=== PATIENT | female | born 1985 | race Two or more races ===

== ENCOUNTER 2018-03-20 02:03 | Emergency (ER) | payer MEDICAID ==
--- NOTE | 2018-03-20 02:07 | EDPHY ---
H & P Time Seen by Provider: 03/20/18 02:07 HPI/ROS: HPI CHIEF COMPLAINT: [ ] HISTORY OF PRESENT ILLNESS: [Need 4: Location, Duration, Severity, Quality, Context, Timing Modifying Factors, Associated S&S] Past Medical History: Past Surgical History: Social History: Family History: ROS REVIEW OF SYSTEMS: 10 Systems were reviewed and negative with the exception of the elements mentioned in the history of present illness. Exam Constitutional triage nursing summary reviewed, vital signs reviewed, awake/ alert. Eyes normal conjunctivae and sclera, EOMI, PERRLA. HENT normal inspection, atraumatic, moist mucus membranes, no epistaxis, neck supple/ no meningismus, no raccoon eyes. Respiratory clear to auscultation bilaterally, normal breath sounds, no respiratory distress, no wheezing. Cardiovascular rate normal, regular rhythm, no murmur, no edema, distal pulses normal. Gastrointestinal soft, non-tender, no rebound, no guarding, normal bowel sounds, no distension, no pulsatile mass. Genitourinary no CVA tenderness. Musculoskeletal no midline vertebral tenderness, full range of motion, no calf swelling, no tenderness of extremities, no meningismus, good pulses, neurovascularly intact. Skin pink, warm, & dry, no rash, skin atraumatic. Neurologic awake, alert and oriented x 3, AAOx3, moves all 4 extremities equally, motor intact, sensory intact, CN II-XII intact, normal cerebellar, normal vision, normal speech. Psychiatric normal mood/affect. Heme/Lymph/Immune no lymphadenopathy. Differential Diagnosis: Medical Decision Making: Re-evaluation: Source: Patient, EMS - Medical/Surgical History Hx Asthma: Yes Hx Chronic Respiratory Disease: No Hx Diabetes: No Hx Cardiac Disease: No Hx Renal Disease: No Hx Cirrhosis: No Hx Alcoholism: No Hx HIV/AIDS: No Hx Splenectomy or Spleen Trauma: No Other PMH: BIPOLAR, tighning of esophagus, chronic sinutitis. RML Lobectomy, fundoplication; hx of PTSD, ADHD, and alcohol use disorder. - Social History Smoking Status: Never smoked Allergies/Adverse Reactions: oxcarbazepine [From Trileptal] Allergy (Verified 03/20/18 02:04) Home Medications: Medication Instructions Recorded Adderall 10 mg Tablet 10/23/15 Ativan 10/23/15 Flonase Nasal [place] 10/23/15 GABAPENTIN 10/23/15 Lexapro 10/23/15 [place] Nasal [place] 10/23/15 Ventolin Hfa Inhaler 10/23/15 Wellbutrin Sr 10/23/15 Departure - Departure Referrals: NONE *PRIMARY CARE P,. [Primary Care Provider] - As per Instructions
[2018-03-20 02:08] VITALS: BP 108/82
--- NOTE | 2018-03-20 02:10 | EDPHY ---
H & P Stated Complaint: med clear Time Seen by Provider: 03/20/18 02:07 HPI/ROS: Chief complaint: Medical clearance for alf History of present illness: This is a 32-year-old female brought to the emergency department by EMS, accompanied by police for medical clearance to go to alf. Officers made contact with patient at a bar. She appeared to be overly intoxicated. Offices were going to take her to detox. Upon placing her in the police car she became belligerent, attempted to kick out the windows. She had to be forcibly removed from the car and restrained. There was no report of traumatic injury to her during this time including to the head. They present here for medical evaluation for taking her to alf. On my evaluation of patient she states she feels fine. She will not answer further questions. Review of systems: Unable to obtain secondary to level of intoxication - Personal History LMP (Females 10-55): Unknown Current Tetanus Diphtheria and Acellular Pertussis (TDAP): Unsure - Medical/Surgical History Hx Asthma: Yes Hx Chronic Respiratory Disease: No Hx Diabetes: No Hx Cardiac Disease: No Hx Renal Disease: No Hx Cirrhosis: No Hx Alcoholism: No Hx HIV/AIDS: No Hx Splenectomy or Spleen Trauma: No Other PMH: BIPOLAR, tighning of esophagus, chronic sinutitis. RML Lobectomy, fundoplication; hx of PTSD, ADHD, and alcohol use disorder. - Social History Smoking Status: Never smoked - Physical Exam Exam: General Appearance: Alert Eyes: PERRLA Respiratory: Lungs clear to auscultation Cardiac: Regular rate and rhythm. Gastrointestinal: Bowel sounds normal. Abdomen is soft nondistended. Neurological: Alert. This Skin: No lesions consistent with trauma Musculoskeletal: Head is nontender without crepitus or bony deformity. Spine is nontender to palpation. Purposeful movement of extremities although she is restrained. Psych: Patient appears intoxicated, joking Constitutional: Initial Vital Signs Temperature (C) 36.7 C 03/20/18 02:05 Heart Rate 102 H 03/20/18 02:05 Respiratory Rate 18 03/20/18 02:05 Blood Pressure 108/82 H 03/20/18 02:05 O2 Sat (%) 96 03/20/18 02:05 O2 Delivery Mode Room Air Allergies/Adverse Reactions: oxcarbazepine [From Trileptal] Allergy (Verified 12/09/18 02:04) Home Medications: Medication Instructions Recorded Adderall 10 mg Tablet 10/23/15 Ativan 10/23/15 Flonase Nasal [place] 10/23/15 GABAPENTIN 10/23/15 Lexapro 10/23/15 [place] Nasal [place] 10/23/15 Ventolin Hfa Inhaler 10/23/15 Wellbutrin Sr 10/23/15 Medical Decision Making ED Course/Re-evaluation: Patient seen under the supervision of my secondary supervising physician Dr. Rj Mistry. Patient presents with EMS and police for medical clearance to go to alf. She was restrained by the police. No report of obvious trauma. Patient is clearly intoxicated, joking with me. She states she feels fine but will not answer further questions. I do not appreciate illness or injury at this time. She is discharged in the care of the police. Differential Diagnosis: Included but not limited to alcohol intoxication, polysubstance abuse Departure - Departure Disposition: Home, Routine, Self-Care Clinical Impression: Alcohol intoxication Qualifiers: Complication of substance-induced condition: uncomplicated Qualified Code(s): F10.920 - Alcohol use, unspecified with intoxication, uncomplicated Condition: Good Instructions: Alcohol Intoxication (ED) Additional Instructions: Follow-up with a primary care doctor for recheck If you develop any concerning symptoms seek immediate medical care Patient is medically cleared to go to alf Referrals: NONE *PRIMARY CARE P,. [Primary Care Provider] - As per Instructions [facility],. [Clinic] - As per Instructions
== END 2018-03-20 02:20 | disposition home or self-care (01) ==
LOC: EDUNIT#
DX: F10.920 Alcohol use, unspecified with intoxication, uncomplicated (principal)